=== PATIENT | male | born 1975 | race Caucasian/White ===

== ENCOUNTER 2017-07-18 13:08 | Emergency (ER) | payer OTHER ==
[~2017-07-18] VITALS: Ht 180.3 cm; Wt 94.4 kg
[~2017-07-18 13:08] MED LIST: DEXILANT30 MG PO; SERTRALINE HCL50 MG PO; TRAZODONE HCL50 MG PO
[2017-07-18 13:58] LABS: HEMATOCRIT 45.2 % (38.0-50.0); MCH 28.9 PG (29.0-34.0); MCV 82.8 FL (86-99); MEAN PLAT.VOLUME 10.1 uM^3 (9.0-12.4); PLATELET COUNT 257 K/uL (156-360); RBC DIS.WIDTH-CV 13.2 % (11.8-14.6); RBC DIS.WIDTH-SD 39.4 % (39-53); RED BLOOD COUNT 5.46 M/uL (4.00-5.50); WHITE BLOOD COUNT 6.1 K/uL (4.1-10.2)
[2017-07-18 14:09] LABS: CHLORIDE 107 mEq/L (99-109); POTASSIUM 4.2 mEq/L (3.7-5.4); SODIUM 141 mEq/L (136-147)
[2017-07-18 14:10] LABS: GLUCOSE 94 mg/dL (70-99)
[2017-07-18 14:12] LABS: ANION GAP 7 MEQ/L (2-14)
[2017-07-18 14:14] LABS: GFR ESTIMATE (CALCULATED) > 59 mL/min/
[2017-07-18 14:15] LABS: UREA NITROGEN (BUN) 11 mg/dL (9-23)
[2017-07-18 15:12] LABS: TROP-I INTERPRETATION NEGATIVE; TROPONIN-I < 0.01 ng/mL (0.0-0.30)
[2017-07-18 16:29] VITALS: BP 110/69
== END 2017-07-18 16:30 | disposition home or self-care (01) ==
LOC: EME 13:08
DX: J06.9 Acute upper respiratory infection, unspecified (principal); R42 Dizziness and giddiness; K21.9 Gastro-esophageal reflux disease without esophagitis; F32.9 Major depressive disorder, single episode, unspecified; F17.200 Nicotine dependence, unspecified, uncomplicated; Z88.2 Allergy status to sulfonamides
CPT/HCPCS: 71020; 80048; 84484; 85027; 93005; 99281; 99284